=== PATIENT | female | born 1975 | race Caucasian/White ===

== ENCOUNTER 2019-08-15 10:14 | Emergency (ER) | payer OTHER ==
--- OUTSIDE RECORDS SUMMARY | 2019-08-15 11:02 | XMS REPORT | Summary of Care ---
:1975 Author Organization [facility] Address [address] [facility] [place] [address] Care Team Providers Name Role Phone Ba Kahn MD Primary Care Provider Reason for Visit Reason Comments Follow Up Encounter Details Date Type Department Care Team Description 07/06/2019 Office Visit [facility], Non morbid obesity, unspecified obesity type (Primary Dx); Bariatrics - Kate Cr MD Body mass index (BMI) of 36.0-36.[address] adult [address] [place] [address] [address] [facility] [place] [address] [place] [address] [phone] Allergies No Known Allergiesdocumented as of this encounter (statuses as of 07/06/2019) Medications Medication Sig Dispensed Refills Start Date End Date Status amitriptyline (ELAVIL, Take 25 mg by 0 Active ENDEP) 25 MG Oral mouth DAILY. TabIndications: two Indications: two tabs once daily tabs once daily escitalopram (LEXAPRO) Take 10 mg by 0 Active 10 MG Oral mouth DAILY. TabIndications: Indications: depression depression docusate sodium Take 100 mg by 0 Active (COLACE) 100 MG Oral mouth DAILY. CapIndications: as Indications: as needed for needed for constipation constipation ferrous sulfate (IRON Take 65 mg by 0 Active SUPPLEMENT) 325 (65 mouth DAILY. Fe) MG Oral Tab Naproxen Sodium Take by mouth. 0 Active (ALEVE) 220 MG Oral Indications: 1 tab CapIndications: 1 tab daily for migrains daily for migrains Aspirin-Acetaminophen- Take by mouth. 0 Active Caffeine (EXCEDRIN Indications: 2 MIGRAINE tabs daily as PO)Indications: 2 tabs needed for daily as needed for migraines migraines Cholecalciferol Take by mouth. 0 Active (VITAMIN D) 50 MCG (1999 UT) Oral Tab documented as of this encounter (statuses as of 07/06/2019) Active Problems No known active problemsdocumented as of this encounter (statuses as of 2018) Social History Tobacco Use Types Packs/Day Years Used Date Former Smoker Quit: 2005 Smokeless Tobacco: Never Used Alcohol Use Drinks/Week oz/Week Comments Not Currently Sex Assigned at Date Recorded Not on file Job Start Date Occupation Industry Not on file Not on file Not on file Travel History Travel Start Travel End No recent travel history available. documented as of this encounter Last Filed Vital Signs Vital Sign Reading Time Taken Comments Blood Pressure 126/84 07/06/2019 9:25 AM EST Pulse 84 07/06/2019 9:25 AM EST Temperature - - Respiratory Rate - - Oxygen Saturation 99% 07/06/2019 9:25 AM EST Inhaled Oxygen Concentration - - Weight 90.2 kg (198 lb 12.8 oz) 07/06/2019 9:25 AM EST Height 156.7 cm (5' 1.7") 07/06/2019 9:25 AM EST Body Mass Index 36.72 07/06/2019 9:25 AM EST documented in this encounter Progress Notes Tayo Mosquera MD - 07/06/2019 9:00 AM EST PATIENT: Debra Chun : 1975 DATE OF SERVICE: 07/06/2019 REFERRING PRACTITIONER: Other PRIMARY CARE PROVIDER: Ba Kahn Chief Complaint Patient presents with Follow Up HISTORY OF PRESENT ILLNESS: Debra Chun is a 43-y.o. female who presents for follow up treatment of obesity and related diseases. She reports no new medical issues in the interim. Her dietary compliance as reported is fair. The patient is not skipping meals. She is keeping a consistent food journal which she did not bring with her today. She is eating about 1500 calories per day. She is getting adequate protein. She is making reasonable choices but is carb heavy. She is snacking on things like cookies. She is inconsistent with her veggie intake. The patient reports walking three days per week for 30 minutes. Past Medical History: Diagnosis Date Depression Iron deficiency Irregular menstrual cycle Migraines No past surgical history on file. Family History Problem Relation Age of Onset Hypertension Mother Cancer Mother breast Cancer Father lung Hypertension Sister High Cholesterol Sister Depression/Depressed Sister Hypertension Brother Depression/Depressed Brother Heart Maternal Grandmother cad Heart Maternal Grandfather cad Social History Tobacco Use Smoking status: Former Smoker Last attempt to quit: 2006 Years since quittin.8 Smokeless tobacco: Never Used Substance Use Topics Alcohol use: Not Currently Current Outpatient Medications Medication Sig amitriptyline (ELAVIL, ENDEP) 25 MG Oral Tab Take 25 mg by mouth DAILY. Indications: two tabsonce daily Xeekrey-Xmeesoaipjcag-Zoxzsqem (EXCEDRIN MIGRAINE PO) Take by mouth. Indications: 2 tabs daily as needed for migraines Cholecalciferol (VITAMIN D) 50 MCG (2000 UT) Oral Tab Take by mouth. docusate sodium (COLACE) 100 MG Oral Cap Take 100 mg by mouth DAILY. Indications: as needed for constipation escitalopram (LEXAPRO) 10 MG Oral Tab Take 10 mg by mouth DAILY. Indications: depression ferrous sulfate (IRON SUPPLEMENT) 325 (65 Fe) MG Oral Tab Take 65 mg by mouth DAILY. Naproxen Sodium (ALEVE) 220 MG Oral Cap Take by mouth. Indications: 1 tab daily for migrains No current facility-administered medications for this visit. No Known Allergies REVIEW OF SYSTEMS: CONSTITUTIONAL: Negative RESPIRATORY: Negative CARDIOVASCULAR: Negative GASTROINTESTINAL: Negative. GENITOURINARY:Negative MUSCULOSKELETAL: Negative NEUROLOGICAL: Negative. PSYCH: Negative. There are no exam notes on file for this visit. PHYSICAL EXAMINATION: VITALS: BP 126/84 | Pulse 84 | Ht 5' 1.7" (1.567 m) | Wt 198 lb 12.8 oz ( 90.2 kg) | SpO2 99% |BMI 36.72 kg/m BODY COMPOSITION AND MEASUREMENTS: BODY COMPOSITION HISTORY Body Composition 04/23/2019 05/22/2019 07/06/2019 Weight 193 lb 196 lb 1.6 oz 198 lb 12.8 oz LEAN BODY MASS (lbs) 96.3 96.8 98.1 BODY FAT MASS (lbs) 96.7 99.3 100.7 BMI (Calculated) 35.64 36.22 36.72 Body Fat % 50.1 50.6 50.7 BASAL METABOLIC RATE (kcal) 1313 1318 1330 EXCESS BODY FAT (lbs) 67.9 70.3 71.4 VISCERAL FAT AREA (cm2) 221.5 222.5 230.6 LEAN BODY MASS DEFICIT (lbs) 0 0 0 NECK CIRCUMFERENCE (in) - - - WAIST CIRCUMFERENCE (in) - - - HIP CIRCUMFERENCE (in) - - - GENERAL: No acute distress; moderately obese PULMONARY: Clear to auscultation bilaterally CARDIOVASCULAR: Regular rate and rhythm; no murmurs, no rubs, no gallops ABDOMEN: Soft, non tender, no organomegaly, no masses appreciated. truncal adiposity present MUSCULOSKELETAL: no clubbing, cyanosis or edema NEUROLOGICAL: Alert and oriented x 3 PSYCH: Appropriate mood and affect LABORATORY STUDIES: No results found for: TRIG, HDL, LDL, CCRP, VITD, TSH IMPRESSION: ICD-9-CM ICD-10-CM 1. Non morbid obesity, unspecified obesity type 278.00 E66.9 2. Body mass index (BMI) of 36.0-36.9 in adult V85.36 Z68.36 PLAN: Debra Chun is a 43-y.o. year-old female with Body mass index is 36.72 kg/ m.. Obesity Class II Weight is increased 2.7 lbs in the interim; this reflects a(n) increase in lean body mass of 1.3 lbs(0.7 lbs of which was total body water) and increase in fat mass of 1.4 lbs Continue with 1100 calories per day; 30 g protein per meal; 30 g carbs per meal Moderate intensity exercise for 30 minutes, at least 5 days per week Follow up: 4 weeks Author: Tayo Mosquera MD 07/06/2019 09:44 documented in this encounter Plan of Treatment Date Type Specialty Care Team Description 08/03/2019 Office Visit Bariatrics Tayo Mosquera MD [address] [place] [address] [phone] Health Maintenance Due Date Last Done Comments HIV SCREENING 1988 LIPID DISORDER SCREENING 1991 PAP SMEAR 1994 MAMMOGRAM (SCREENING) 2013 INFLUENZA VACCINE (#1) 2019 DEPRESSION SCREENING 04/06/2020 04/06/2019 DIABETES SCREENING 04/06/2020 04/06/2019 HPV IMMUNIZATION SERIES Aged Out No longer eligible based on patient's age to complete this topic MENINGOCOCCAL VACCINE IMM Aged Out No longer eligible based on patient's age to complete this topic PNEUMOCOCCAL 0-64 YRS Aged Out No longer eligible based on patient's age to complete this topic documented as of this encounter Results Not on filedocumented in this encounter Visit Diagnoses Diagnosis Non morbid obesity, unspecified obesity type - Primary Body mass index (BMI) of 36.0-36.9 in adult Body Mass Index 36.0-36.9, adult documented in this encounter
[2019-08-15 11:32] VITALS: BP 109/77
--- NOTE | 2019-08-15 11:46 | UC ---
Throat Pain/Nasal Surya HPI - HPI Summary HPI Summary: Sore throat for two days. Fever, chills, slight cough, sinus congestion. Headache and body aches, fatiuge. Inside of lower lip is sore. No N/v/d. Pt states her temp was 104 two nights ago. States grandson has strep. - History of Current Complaint Chief Complaint: UCRespiratory Stated Complaint: FLU SXS Time Seen by Provider: 08/15/19 11:10 Hx Obtained From: Patient Hx Last Menstrual Period: 07/10/19 ?: No Onset/Duration: Sudden Onset, Lasting Days Severity: Severe Pain Intensity: 8 Associated Signs & Symptoms: Positive: Dysphagia, Hoarseness, Sinus Discomfort, Fever - Allergies/Home Medications Allergies/Adverse Reactions: Allergies Allergy/AdvReac Type Severity Reaction Status Date / Time No Known Allergies Allergy Verified 08/15/19 11:21 Home Medications: Home Medications Doxylam/PE/Dm/Acetaminophen/GG [Vicks Dayquil/Nyquil Lauren] 1 liq PO PRN [History] Escitalopram Oxalate [Lexapro 10 mg] 10 mg PO DAILY 08/15/19 [History Confirmed 08/15/19] PMH/Surg Hx/FS Hx/Imm Hx Previously Healthy: Yes Other History Of: Negative For: HIV, Hepatitis B, Hepatitis C, Anticoagulant Therapy - Surgical History Surgical History: None - Family History Known Family History: Positive: None Negative: Hypertension - Social History Alcohol Use: None Substance Use Type: None Smoking Status (MU): Former Smoker When Did the Patient Quit Smoking/Using Tobacco: 2005 Review of Systems All Other Systems Reviewed And Are Negative: Yes Constitutional: Positive: Fever ENT: Positive: Sore Throat Respiratory: Positive: Cough Neurological: Positive: Headache Is Patient Immunocompromised?: No Physical Exam Triage Information Reviewed: Yes Appearance: Well-Nourished, Ill-Appearing, Pain Distress Vital Signs: Initial Vital Signs Temp 97.4 F 08/15/19 11:24 Pulse 98 08/15/19 11:24 Resp 20 08/15/19 11:24 BP 109/77 08/15/19 11:24 Pulse Ox 97 08/15/19 11:24 Vital Signs Reviewed: Yes Eye Exam: Normal ENT: Positive: Pharyngeal erythema, TM bulging, TM red, Tonsillar swelling Dental Exam: Normal Respiratory Exam: Normal Respiratory: Positive: Chest non-tender, Lungs clear, Normal breath sounds Cardiovascular: Positive: RRR, No Murmur, Pulses Normal Abdominal Exam: Normal Psychological Exam: Normal Skin Exam: Normal Throat Pain/Nasal Course/Dx - Course Course Of Treatment: hx obtained,exam performed ,meds reviewed, treated for a positive Influenza A - Differential Dx/Diagnosis Differential Diagnosis/HQI/PQRI: Influenza, Pharyngitis, Sinusitis, URI Provider Diagnosis: Influenza A Discharge ED - Sign-Out/Discharge Documenting (check all that apply): Patient Departure All imaging exams completed and their final reports reviewed: No Studies - Discharge Plan Condition: Stable Disposition: HOME Prescriptions: Oseltamivir CAP* [Tamiflu CAP*] 75 mg PO BID #10 cap Patient Education Materials: Influenza (ED) Referrals: Ba Kahn MD [Primary Care Provider] - Additional Instructions: 1. rest 2. Lots of fluids 3. Take the medication as prescribed. 4. Ibuprofen for pain and fever 5. Stay home and minimize exposure to you and others. 6. follow up if you experience any respiratory diffficulty in the ER. - Billing Disposition and Condition Condition: STABLE Disposition: Home
[2019-08-15 11:48] LABS: Influenza A Molecular POSITIVE (Negative)
== END 2019-08-15 11:59 | disposition home or self-care (01) ==
LOC: UCCORT 10:14
DX: J11.1 Influenza due to unidentified influenza virus with other respiratory manifestations (principal); Z87.891 Personal history of nicotine dependence
CPT/HCPCS: 87651; 99212; G0463